=== PATIENT | male | born 1985 | race Caucasian/White ===

== ENCOUNTER 2022-12-14 19:20 | Emergency (ER) | payer OTHER, SELFPAY ==
[2022-12-14 19:24] VITALS: BP 148/95; PULSE 100; RESP 18; TEMP 36.8; O2SAT 95; BMI 36.5
--- NOTE | 2022-12-14 19:27 | ECG_ITS ---
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 Measurements Intervals [place] Rate: 100 P: 20 MI: 183 QRS: 9 QRSD: 106 T: 13 QT: 351 QTc: 453 Interpretive Statements SINUS TACHYCARDIA No previous ECG available for comparison Electronically Signed On 12-15-2022 11:19:36 METER READING CLERK by David Holden M.D. [id number]
--- NOTE | 2022-12-14 19:32 | XRR_ITS ---
PROCEDURE INFORMATION: Exam: XR Chest Exam date and time: 12/14/2022 7:56 PM Age: 37 years old Clinical indication: Pain; Chest pressure; Additional info: Cp TECHNIQUE: Imaging protocol: Radiologic exam of the chest. Views: 1 view. COMPARISON: No relevant prior studies available. FINDINGS: Lungs: Lung base atelectasis or scarring. No consolidation. Pleural spaces: Unremarkable. No pleural effusion. No pneumothorax. Heart/Mediastinum: Unremarkable. No cardiomegaly. Low lung volumes accentuate heart size and central vascularity. Bones/joints: Unremarkable. XR/XR chest 1V portable [id number] IMPRESSION: No acute findings.
--- NOTE | 2022-12-14 20:19 | ED_ITS ---
HPI - Chest Pain General: Chief Complaint: Chest Pain Stated Complaint: cp Time Seen by Provider: 12/14/22 20:10 History of Present Illness: Patient is a 37-year-old male who comes to the ED with chest pain. Symptoms started approximately 3 hours ago while he was at rest. Chest pain described as a sharp aching pain on the left side of chest. He he rates pain currently a 5 out of 10. Pain worsens with inspiration. Endorses having shortness of breath with symptoms. Patient took three 81 mg aspirin tabs before coming to the ED. denies any past episodes of chest pain or any cardiac history. Associated symptoms: Reports dyspnea; Deny abdominal pain, fever(s), nausea, palpitations or vomiting Review of Systems Const: Denies: fever(s), chills or fatigue Eyes: Denies: change in vision or eye discomfort ENMT: Denies: throat pain, odynophagia, nasal discharge or nasal congestion Card: Reports: chest pain; Denies: palpitations, edema, swelling of feet/ankles, dyspnea on exertion or orthopnea Resp: Reports: dyspnea; Denies: productive cough or non-productive cough GI: Denies: abdominal pain, nausea, vomiting, diarrhea, constipation or hematochezia : Denies: flank pain, difficulty urinating, dysuria or hematuria Musc: Denies: neck pain, back pain or extremity swelling Skin/Breast: Denies: rash or new lesions Neuro: Denies: headache(s), numbness in extremities or weakness in extremities PFS ED PFSH: Medical History No pertinent past medical history Surgical History No pertinent past surgical history Physical Exam Const: COMMON NORMALS: no acute distress, patient oriented x3 and alert GENERAL APPEARANCE: cooperative and comfortable HENMT: COMMON NORMALS: normocephalic HEAD & SCALP: normocephalic MOUTH: Normal oral and palatal mucosa present THROAT: posterior oropharynx normal and uvula midline Neck/C-Spine: COMMON NORMALS: supple GENERAL: Yes normal visual inspection Resp: COMMON NORMALS: normal respiratory effort, No retractions, No use of accessory muscles and clear to auscultation bilaterally AUSCULTATION: clear to auscultation bilaterally Cardio: COMMON NORMALS: regular rate, regular rhythm, S1 normal heart sound present, S2 normal heart sound present, No gallops present (Cardio), No clicks present (Cardio), No murmurs present (Cardio) and Peripheral pulses 2+ throughout RATE: regular rate RHYTHM: regular rhythm HEART SOUNDS: S1 normal heart sound present and S2 normal heart sound present PERIPHERAL PULSES: Peripheral pulses 2+ throughout GI: COMMON NORMALS: Normal to inspection, nondistended, normoactive bowel sounds present, Soft to palpation, non-tender and no masses PALPATION: Yes Soft to palpation : COMMON NORMALS: Yes no CVA tenderness BLADDER/KIDNEY EXAM: Yes no CVA tenderness Back/Pelvis: COMMON NORMALS: no CVA tenderness Extremity: COMMON NORMALS: normal to inspection Neuro: COMMON NORMALS: patient oriented x3 SENSORIUM/ORIENTATION: Yes alert GAIT: Yes Normal gait present Skin: GENERAL SKIN EXAM: dry skin Course Vital Signs: Vital signs: Vital Signs Temperature 98.2 F 12/14/22 19:24 Pulse Rate 85 12/14/22 23:22 Respiratory Rate 15 12/14/22 23:22 Blood Pressure 138/81 12/14/22 22:50 Pulse Oximetry 98 12/14/22 23:22 Oxygen Delivery Me thod 12/14/22 22:50 MDM - Chest Pain Medical Decision Making Patient is a 37-year-old male who comes to the ED with chest pain. Symptoms started approximately 3 hours ago while he was at rest. Chest pain described as a sharp aching pain on the left side of chest. He he rates pain currently a 5 out of 10. Pain worsens with inspiration. Endorses having shortness of breath with symptoms. Patient took three 81 mg aspirin tabs before coming to the ED. denies any past episodes of chest pain or any cardiac history. Vital stable. Exam of patient is benign and he appears nontoxic in no acute distress or pain. Chest x-ray shows no acute findings. CBC and CMP are unremarkable. D-dimer 0.35. EKG shows sinus tachycardia, [address] segment elevation or depression seen. Troponins negative. Patient diagnosed with noncardiac chest pain and was stable for discharge home. He was told to follow-up with his PCP within the next week for reevaluation. Strict return to ED precautions given. Patient understood and agreed with plan. Lab Data I reviewed the patient's lab results. 12/14/22 20:03 12/14/22 20:03 Radiology Impressions Chest X-Ray 12/14/22 19:32 IMPRESSION: No acute findings. Laboratory Results WBC 7.0 10^3/uL (4.0-10.0) 12/14/22 20:03 RBC 5.25 10^6/uL (4.1-5.3) 12/14/22 20:03 Hgb 14.5 g/dL (11.7-16.6) 12/14/22 20:03 Hct 43.4 % (42.0-52.0) 12/14/22 20:03 MCV 82.7 fl (80-94) 12/14/22 20:03 MCH 27.6 pg (28.0-34.0) L 12/14/22 20: MCHC 33.4 g/dL (30.0-36.0) 12/14/22 20:03 RDW 12.5 % (12.1-15.1) 12/14/22 20:03 Plt Count 251 10^3/cmm (130-400) 12/14/22 20:03 MPV 9.5 fL (7.4-10.4) 12/14/22 20:03 Neut % (Auto) 71.9 % 12/14/22 20:03 Lymph % (Auto) 19.9 % 12/14/22 20:03 [place] % (Auto) 6.5 % 12/14/22 20:03 Eos % (Auto) 1.1 % 12/14/22 20:03 Baso % (Auto) 0.3 % 12/14/22 20:03 Neut # (Auto) 5.01 10^3/uL (1.8-7.7) 12/14/22 20:03 Lymph # (Auto) 1.4 10^3/uL (0.8-4.8) 12/14/22 20:03 [place] # (Auto) 0.5 10^3/uL (0.2-0.9) 12/14/22 20:03 Eos # (Auto) 0.1 10^3/uL (0.0-0.8) 12/14/22 20:03 Baso # (Auto) 0.0 10^3/uL (0.0-0.1) 12/14/22 20:03 Nucleated RBC % (auto) 0 % 12/14/22 20:03 Nucleated RBCs # 0.0 /100WBC 12/14/22 20:03 D-Dimer 0.35 ug/mIFEU (0-0.59) 12/14/22 20:03 Sodium 137 mmol/L (136-145) 12/14/22 20:03 Potassium 3.7 mmol/L (3.5-5.1) 12/14/22 20:03 Chloride 98 mmol/L (98-107) 12/14/22 20:03 Carbon Dioxide 26 mmol/L (22-29) 12/14/22 20:03 Anion Gap 16.7 (5-19) 12/14/22 20:03 BUN 18 mg/dL (6-20) 12/14/22 20:03 Creatinine 0.9 mg/dL (0.7-1.2) 12/14/22 20:03 GFR Calculation 93.9 mL/min (90-130) 12/14/22 20:03 Glucose 88 mg/dL (65-115) 12/14/22 20:03 Calculated Osmolality 285 mOsm/kg (285-295) 12/14/22 20:03 Calcium 9.7 mg/dL (8.5-10.5) 12/14/22 20:03 Total Bilirubin 0.6 mg/dL (0.15-1.2) 12/14/22 20:03 AST 20 U/L (0-40) 12/14/22 20:03 ALT 31 U/L (0-41) 12/14/22 20:03 Alkaline Phosphatase 62 U/L (40-130) 12/14/22 20:03 Troponin T Baseline 6 ng/L (0-15) 12/14/22 20:03 Troponin T 120 Minute 6.00 ng/L (0-15) 12/14/22 22:10 Delta Troponin T 0 ABS# (0-10) 12/14/22 22:10 Total Protein 7.9 g/dL (6.6-8.7) 12/14/22 20:03 Albumin 4.6 g/dL (3.5-5.2) 12/14/22 20:03 Globulin 3.3 g/dL (1.3-4.6) 12/14/22 20:03 EKG Data EKG 1: EKG interpretation date: 12/14/22 Interpretation: Sinus tachycardia, 100 bpm, no ST segment elevation or depression seen. Discharge Plan Discharge Patient Disposition: Home Clinical Impression: Non-cardiac chest pain Condition: Stable Discharge Orders: Discharge ED (Routine); Ordered 12/14/22 Ordered By: Thang Wharton Discharge Diet: Regular Discharge Activity: Increase activity as tolerated Patient Instructions: Noncardiac Chest Pain (ED) Activity Restrictions/Additional Instructions: Follow-up with medical provider as directed in the next 5 to 7 days for reevaluation. Take [id number] Tylenol or ibuprofen for any pain. Return to the ER or your medical provider if condition worsens. Please read and understand discharge instructions. Thank you for choosing [facility] for your healthcare needs today. Please realize this is an emergency room and that we are providing you with a medical screening exam and this may not be complete and all inclusive of all the testing and or work up that you may need to determine your ailment or severity of your illness. It is very important that you follow up as instructed or that you return to the Emergency Department should you have concerns or if your condition changes or worsens in any way. Coding Level of Care Code ED Music Orchestrator for Cam Santos
[2022-12-14 20:22] LABS: Basophils % 0.3 %; Eosinophils # 0.1 10^3/uL (0.0-0.8); Eosinophils % 1.1 %; Hematocrit 43.4 % (42.0-52.0); Hemoglobin 14.5 g/dL (11.7-16.6); Lymphocytes # 1.4 10^3/uL (0.8-4.8); Lymphocytes % 19.9 %; Mean Corpuscular HGB Conc 33.4 g/dL (30.0-36.0); Mean Corpuscular Hemoglobin 27.6 pg (28.0-34.0); Mean Corpuscular Volume 82.7 fl (80-94); Mean Platelet Volume 9.5 fL (7.4-10.4); Monocytes # 0.5 10^3/uL (0.2-0.9); Monocytes % 6.5 %; Neutrophils # 5.01 10^3/uL (1.8-7.7); Neutrophils % 71.9 %; Nucleated Red Blood Cells % 0 %; Platelet Count 251 10^3/cmm (130-400); Red Blood Count 5.25 10^6/uL (4.1-5.3); Red Cell Distribution Width 12.5 % (12.1-15.1)
[2022-12-14 20:40] VITALS: BP 129/94; PULSE 89; RESP 24; O2SAT 94
[2022-12-14 20:40] LABS: Alanine Aminotransferase 31 U/L (0-41); Albumin Level 4.6 g/dL (3.5-5.2); Alkaline Phosphatase 62 U/L (40-130); Anion Gap 16.7 (5-19); Aspartate Amino Transferase 20 U/L (0-40); Blood Urea Nitrogen 18 mg/dL (6-20); Calcium 9.7 mg/dL (8.5-10.5); Carbon Dioxide 26 mmol/L (22-29); Chloride 98 mmol/L (98-107); Globulin 3.3 g/dL (1.3-4.6); Glomerular Filtration Rate 93.9 mL/min (90-130); Glucose 88 mg/dL (65-115); Osmolality Calculated 285 mOsm/kg (285-295); Potassium 3.7 mmol/L (3.5-5.1); Sodium 137 mmol/L (136-145); Total Bilirubin 0.6 mg/dL (0.15-1.2); Total Protein 7.9 g/dL (6.6-8.7); Troponin(5th) Baseline 6 ng/L (0-15)
[2022-12-14] MEDS: aspirin 81 mg Chew Tablet PO (20:42)
[2022-12-14 20:52] LABS: D Dimer 0.35 ug/mIFEU (0-0.59)
--- NOTE | 2022-12-14 21:32 | ECG_ITS ---
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 Measurements Intervals [place] Rate: 83 P: 22 CO: 178 QRS: 4 QRSD: 105 T: 2 QT: 369 QTc: 434 Interpretive Statements SINUS RHYTHM WITH OCCASIONAL SUPRAVENTRICULAR PREMATURE COMPLEXES INFERIOR MYOCARDIAL INFARCTION , PROBABLY OLD [40+ ms Q WAVE AND/OR ST/T ABNORMALITY IN II/aVF] No previous ECG available for comparison Electronically Signed On 12-15-2022 11:22:05 SENIOR RECRUITMENT CONSULTANT by David Holden M.D. [id number]
[2022-12-14 21:36] VITALS: BP 142/93; PULSE 87; RESP 21; O2SAT 94
[2022-12-14 22:50] VITALS: BP 138/81; PULSE 85; RESP 23; O2SAT 96
[2022-12-14 23:22] VITALS: PULSE 85; RESP 15; O2SAT 98
[2022-12-14 23:50] LABS: Troponin 5 2HR Delta 0 ABS# (0-10)
--- NOTE | 2022-12-22 16:22 | DCPLANNER ---
12.20.22 - patient called due to no primary care physician - unavailable at this time 12.21.22 - patient called due to no primary care physician - patient declines at at this time.
== END 2022-12-14 23:23 | disposition home or self-care (01) ==
PROVIDERS: Emergency Provider Physician Assistant
DX: R07.89 Other chest pain (principal)
CPT/HCPCS: 36415; 71045; 80053; 84484; 85025; 85378; 93005; 99285